=== PATIENT | female | born 1990 | race Two or more races ===

== ENCOUNTER 2018-10-15 05:14 | Emergency (ER) | payer MEDICAID ==
[~2018-10-15] VITALS: Ht 172.7 cm; Wt 113.4 kg
[2018-10-15] MEDS ORDERED: diphenhdrAMINE HCL 25 MG CAP PO ONE (05:45)
[2018-10-15 06:27] VITALS: BP 118/75
[2018-10-15] MEDS ORDERED: EPINEPHrine HCL 1 MG/1 ML AMP SC ONE (06:30)
== END 2018-10-15 06:53 | disposition home or self-care (01) ==
LOC: ER 05:14
DX: T78.40XA Allergy, unspecified, initial encounter (principal)
CPT/HCPCS: 99283; J0171